=== PATIENT | male | born 1965 | race Caucasian/White ===

== ENCOUNTER 2016-12-13 09:50 | Emergency (ER) | payer BC, OTHER ==
[2016-12-13 10:02] VITALS: TEMP 98.1; BMI 28.1
[2016-12-13] MEDS ORDERED: diphenhydrAMINE HCL 25 MG CAPSULE (FP) PO ONE (10:05)
[2016-12-13] MEDS ORDERED: FAMOTIDINE 20 MG TABLET PO ONE (10:06)
--- NOTE | 2016-12-13 10:18 | PDOC ---
History of Present Illness - General Chief Complaint: Allergic Reaction Stated Complaint: ALLERGIC REACTION - History of Present Illness Initial Comments: 12/13/16 10:13 51 yo male with no significant pmhx here wtih c/o itchy watery eyes, and hands itching after sitting outside this am. was wiping off a tabel. now itching all over. no wheezing no sob. no lip or tongue swelling. did not take any meds prior to arrival. no new meds or lotions. no mod factors. Past History - Past Medical History Allergies/Adverse Reactions: Allergies Allergy/AdvReac Type Severity Reaction Status Date / Time No Known Allergies Allergy Verified 12/13/16 09:56 Home Medications: Ambulatory Orders No Home Medications 0 dose .ROUTE UTDICT 04/03/12 - Psycho/Social/Smoking Cessation Hx Anxiety: No Suicidal Ideation: No Smoking Status: No Smoking History: Never smoked Number of Cigarettes Smoked Daily: 0 Hx Alcohol Use: Yes (OCCASIONAL) Drug/Substance Use Hx: No Substance Use Type: None Review of Systems - Review of Systems Constitutional: No: Chills, Diaphoresis Respiratory: No: Orthopnea, Shortness of Breath Cardiac (ROS): No: Chest Pain, Edema Musculoskeletal: No: Gout, Joint Pain, Joint Swelling Integumentary: Yes: Pruritus, Rash Neurological: No: Headache, Numbness All Other Systems: Reviewed and Negative *Physical Exam - Vital Signs Last Vital Signs Temp Pulse Resp BP Pulse Ox 98.1 F 77 16 152/92 97 12/13/16 09:55 12/13/16 09:55 12/13/16 09:55 12/13/16 09:55 12/13/16 09:55 - Physical Exam General Appearance: Yes: Nourished. No: Appropriately Dressed, Apparent Distress HEENT: positive: EOMI, Normal Voice, Other (bilat eye conj injection) Neck: positive: Trachea midline, Other (no stridor) Respiratory/Chest: positive: Lungs Clear, Normal Breath Sounds. negative: Respiratory Distress, Wheezing Cardiovascular: positive: Regular Rhythm, Regular Rate, S1, S2. negative: Edema , JVD, Murmur Gastrointestinal/Abdominal: positive: Normal Bowel Sounds. negative: Tender, Flat Musculoskeletal: positive: Normal Inspection. negative: CVA Tenderness, CVA Tenderness (R) Extremity: positive: Normal Capillary Refill. negative: Swelling Integumentary: positive: Normal Color, Dry, Warm, Other (no visible rash ) Neurologic: positive: Fully Oriented, Alert ED Treatment Course - Medications Given in the ED: ED Medications Discontinued Medications Generic Name Dose Route Start Last Admin Trade Name Antonio PRN Reason Stop Dose Admin Diphenhydramine HCl 50 mg 12/13/16 10:05 12/13/16 10:06 Benadryl - PO 12/13/16 10:06 50 mg ONCE ONE Administration Famotidine 20 mg 12/13/16 10:06 12/13/16 10:06 Pepcid - PO 12/13/16 10:07 20 mg ONCE ONE Administration Medical Decision Making - Medical Decision Making 12/13/16 10:17 51 yo M with no pmhx here with allergic conjuncitivits and urticaria like sxs likely environmental. pt already showered. rob given benadry and pepcid. recommend benadryl and visine antihistamine. short observation and dc home. 12/13/16 10:30 pt feeling much better after medication and requesting to leave. *DC/Admit/Observation/Transfer Diagnosis at time of Disposition: Allergic conjunctivitis and rhinitis - Discharge Dispostion Disposition: HOME Condition at time of disposition: Improved Admit: Yes - Patient Instructions Printed Discharge Instructions: DI for Eye Allergic Reaction, Allergies, Respiratory (Alternative Therapy) Additional Instructions: you can take over the counter benadryl 25 mg every 6 hours as needed for itching. use Visine antihistamine eye drops to ease itching of the eyes. you may want to start taking Zyrtec 5 mg daily or Claritin daily ( also both over the counter ) to help recurrence of allergic symtpoms this time of year. return for any shortness of breath, wheezing, lip or tonue swelling or any concerns.
[2016-12-13 10:19] VITALS: BP 144/90; PULSE 63
== END 2016-12-13 10:35 | disposition home or self-care (01) ==
LOC: FER 09:50
DX: H10.10 Acute atopic conjunctivitis, unspecified eye (principal); J31.0 Chronic rhinitis
CPT/HCPCS: 99282-25

== ENCOUNTER 2017-11-19 06:39 | Emergency (ER) | payer BC, OTHER ==
[2017-11-19 06:48] VITALS: BP 177/96; PULSE 58; TEMP 98.5; BMI 28.1
--- NOTE | 2017-11-19 06:52 | PDOC ---
History of Present Illness - General Chief Complaint: Eye Problem Stated Complaint: SWELLING,ITCHING TO LEFT EYE Time Seen by Provider: 11/19/17 06:44 History Source: Patient Exam Limitations: No Limitations - History of Present Illness Initial Comments: 11/19/17 19:42 This is a 52-year-old male who comes in complaining of swelling and itching to his left eye secondary to seasonal ALLERGIES. Patient said he has been rubbing his eye. Patient did not take anything for the itching and swelling. Patient said it happened a couple years back and he came here somebody gave him a pill that made it better and he wants something to take. Otherwise he denies any fevers or chills. He denies any crusting of the lid. He denies any pus or purulent discharge from the eye. PAST MEDICAL HISTORY: no significant history PAST SURGICAL HISTORY: no significant history FAMILY HISTORY: no pertinant history SOCIAL HISTORY: Pt lives with family and is employed. MEDICATIONS: reviewed ALLERGIES: As per nursing notes Review of Systems General: No fevers or chills, no weakness, no weight loss HEENT: No change in vision. No sore throat,. No ear pain CardioVascular: No chest pain or shortness of breath Respiratory:No cough, or wheezing. Gastrointestinal: no nausea, vomitting, diarrhea or constipation, No rectal bleeding Genitourinary: No dysuria, hematuria, or frequency Musculoskeletal: No joint or muscle pain or swelling Neurologic: No headache, vertigo, dizziness or loss of consciousness Psychiatric: nor depression Skin: No rashes or easy bruising Endocrine: no increased thirst or abnormal weight change Allergic: no skin or latex allergy All other systems reviewed and normal GENERAL: The patient is awake, alert, and fully oriented, in no acute distress. HEAD: Normal with no signs of trauma. EYES: Pupils equal, round and reactive to light, extraocular movements intact, sclera anicteric, left eye markedly swollen with injection of the conjunctiva. There is no. Discharge her is some clear discharge. EXTREMITIES: Normal range of motion, no edema. NEUROLOGICAL: Normal speech, normal gait. grossly intact PSYCH: Normal mood, normal affect. SKIN: Warm, Dry, normal turgor, no rashes or lesions noted. Assessment and plan: This is a 52-year-old male with seasonal ALLERGIES and ALLERGIC conjunctivitis. Patient given Decadron here in the emergency room. Told to get some Claritin or Kiara and take as prescribed in addition to that I gave him some antihistamine ophthalmic drops to use. Patient discharged home Past History - Past Medical History Allergies/Adverse Reactions: Allergies Allergy/AdvReac Type Severity Reaction Status Date / Time No Known Allergies Allergy Verified 11/19/17 06:42 Home Medications: Ambulatory Orders No Home Medications 0 dose .ROUTE UTDICT 04/03/12 Olopatadine HCl [Patanol] 1 drop OU BID #1 bottle 11/19/17 - Suicide/Smoking/Psychosocial Hx Smoking Status: No Smoking History: Never smoked Number of Cigarettes Smoked Daily: 0 Hx Alcohol Use: Yes (OCCASIONAL) Drug/Substance Use Hx: No Substance Use Type: None *DC/Admit/Observation/Transfer Diagnosis at time of Disposition: Allergic conjunctivitis and rhinitis - Discharge Dispostion Disposition: HOME Condition at time of disposition: Stable - Prescriptions Prescriptions: Olopatadine HCl [Patanol] 1 drop OU BID #1 bottle - Referrals - Patient Instructions Additional Instructions: The pharmacy and get the eyedrops use 1 drop both eyes twice a day. In addition to that get some antihistamine such as Claritin or Kiara and take as directed. Return to the emergency department immediately with ANY new, persistent or worsening symptoms. Continue any medications as previously prescribed by your physician. You should follow up with your primary doctor as soon as possible regarding today's emergency department visit. . Please make sure your doctor reviews the results of your emergency evaluation. Thank you for coming to the Emergency Department today for your care. It was a pleasure to see you today. Please note that your evaluation is INCOMPLETE until you follow-up with your doctor. - Post Discharge Activity
[2017-11-19] MEDS ORDERED: DEXAMETHASONE SOD PHOSPHATE 10 MG/1 ML VIAL ONE (06:53)
[2017-11-19] MEDS ORDERED: DEXAMETHASONE SOD PHOSPHATE 10 MG/1 ML VIAL IM ONE (06:56)
== END 2017-11-19 06:58 | disposition home or self-care (01) ==
LOC: FER 06:39
PROC: 3E023GC Introduction of Other Therapeutic Substance into Muscle, Percutaneous Approach (ICD-10-PCS; principal; 2017-11-19)
DX: H10.12 Acute atopic conjunctivitis, left eye (principal); J30.1 Allergic rhinitis due to pollen
CPT/HCPCS: 99281-25; J1100